=== PATIENT | male | born 1960 | race Caucasian/White ===

== ENCOUNTER 2021-11-24 09:31 | Day surgery (SDC) | payer OTHER ==
[~2021-11-24] VITALS: Ht 160 cm; Wt 63.0 kg
[2021-11-24] MEDS ORDERED: fentaNYL citrate 0.05 MG/ML VIAL ONE (11:30)
[2021-11-24] MEDS ORDERED: diphenhydrAMINE 50 MG/ML VIAL ONE (11:30)
[2021-11-24] MEDS ORDERED: MIDAZOLAM 2 MG/2 ML VIAL ONE (11:31)
[2021-11-24] MEDS ORDERED: LIDOCAINE 2% 100 MG/5 ML UJET TP ONE (11:31)
[2021-11-24] MEDS ORDERED: MIDAZOLAM 2 MG/2 ML VIAL IVP ONE (14:30)
[2021-11-24] MEDS ORDERED: fentaNYL citrate 0.05 MG/ML VIAL IVP ONE (14:30)
== END 2021-11-24 13:28 | disposition home or self-care (01) ==
LOC: MMU 09:31 → MDS 09:31
PROVIDERS: ATTEND Internal Medicine Gastroenterology
DX: Z12.11 Encounter for screening for malignant neoplasm of colon (principal); D12.2 Benign neoplasm of ascending colon; I10 Essential (primary) hypertension; E11.9 Type 2 diabetes mellitus without complications; Z79.84 Long term (current) use of oral hypoglycemic drugs; Z79.899 Other long term (current) drug therapy
CPT/HCPCS: 45380; 45385; J2250; J3010; 88305; J1200